=== PATIENT | female | born 1985 | race American Indian/Alaskan Native ===

== ENCOUNTER 2016-02-13 11:01 | Emergency (ER) | payer MEDICAID ==
[2016-02-13] MEDS ORDERED: ZOFRAN ODT PO ONE (14:08)
[2016-02-13] MEDS ORDERED: TYLENOL PO ONE (14:09)
--- NOTE | 2016-02-13 14:13 | Emergency Department Report ---
Vomiting/Diarrhea - [facility] Chief Complaint: Nausea/Vomiting/Diarrhea Stated Complaint: 8WKS/BODY PAIN/NAUSEA Time Seen by Provider: 02/13/16 14:07 Nausea/Vomiting Severity: Moderate Other History: 30-year-old female that is 8 weeks with a miscarriage in September 2014 comes in for nausea and vomiting with body aches. Patient reports that she had contacted the OB and told them a week ago that she's been nauseated and vomiting but they did not respond to her concerns. Patient does disclose that she is on Flagyl for bacterial vaginosis. She does complain of epigastric indigestion and not sure what to take. Lmp 12/16/15. ED Review of Systems ROS: Stated complaint: 8WKS/BODY PAIN/NAUSEA Other details as noted in HPI ED Past Medical Hx - Past Medical History Previous Medical History?: Yes Additional medical history: Miscarriage - Surgical History Past Surgical History?: Yes Additional Surgical History: D&C - Social History Smoking Status: Former Smoker Substance Use Type: Non Opiate Pain, Prescribed - Medications Home Medications: Home Medications Medication Instructions Recorded Confirmed Last Taken Type Ondansetron [Zofran Odt] 4 mg PO QID PRN #20 tab.rapdis 02/13/16 Unknown Rx Vit No.130/Iron/FA 02/13/16 02/12/16 History [ Tablet] Vomiting Diarrhea Exam - Exam General: Vital signs noted. No distress. Alert and acting appropriately. Neurologic: Alert and oriented, no deficits. Musculoskeletal: Unremarkable. ED Course Vital Signs 02/13/16 11:16 Temperature 98.1 F Pulse Rate 110 H Respiratory 20 Rate Blood Pressure 137/87 O2 Sat by Pulse 100 Oximetry - Reevaluation(s) Reevaluation #1: 02/13/16 15:31 She reports that she feels much better after having the Zofran and then normal saline. ED Medical Decision Making - Medical Decision Making Is been evaluated by provider in fast track. Discussed with Dr. Jaimes she agrees to given the patient 2 L of normal saline and Zofran and be sure to do a UA. Patient verbalizes understanding. We also gave her Tylenol 975 mg for pain from retching vomiting. Critical care attestation.: If time is entered above; I have spent that time in minutes in the direct care of this critically ill patient, excluding procedure time. ED Disposition Clinical Impression: Nausea & vomiting Qualifiers: Vomiting type: unspecified Vomiting Intractability: unspecified Qualified Code( s): R11.2 - Nausea with vomiting, unspecified Qualifiers: Weeks of gestation: 8 weeks Qualified Code(s): Z3A.08 - 8 weeks gestation of Disposition: DISCHARGED TO HOME OR SELFCARE Is pt being admited?: No Does the pt Need Aspirin: No Condition: Stable Instructions: Morning Sickness (ED) Additional Instructions: Discontinue the Flagyl. Follow-up with her FINANCIAL PROJECT MANAGER to see if they want to continue treatment. Take Zofran 30 minutes prior to eating on as-needed basis. Is very important for you to have care so please follow-up with your FINANCIAL PROJECT MANAGER as soon as possible. Prescriptions: Ondansetron [Zofran Odt] 4 mg PO QID PRN #20 tab.rapdis PRN Reason: Nausea Forms: Work/School Release Form(ED)
[2016-02-13] MEDS ORDERED: NACL 0.9% 1000 ML IV ONE ×2 (14:14→15:50)
[2016-02-13] MEDS ORDERED: ZOFRAN IV ONE (14:15)
[2016-02-13 14:57] LABS: Bilirubin,Urine NEG (Negative); Blood,Urine SM (Negative); Ketones,Urine 80 mg/dL (Negative); Leukocyte Esterase,Urine TR (Negative); Mucus,Urine FEW /HPF; Nitrite,Urine NEG (Negative); Protein,Urine <15 mg/dL mg/dL (Negative); Urobilinogen,Urine < 2.0 mg/dL (<2.0)
[2016-02-13 17:11] VITALS: BP 132/74
== END 2016-02-13 17:11 | disposition home or self-care (01) ==
LOC: ED 11:01
DX: O21.0 Mild hyperemesis gravidarum (principal); Z3A.08 8 weeks gestation of pregnancy; Z87.891 Personal history of nicotine dependence
CPT/HCPCS: 81001; 81025; 96361; 96374; 99283; J2405; J7030

== ENCOUNTER 2016-05-21 08:04 | Outpatient (CLI) | payer MEDICAID ==
--- NOTE | 2016-05-22 15:39 | Ultrasound Report ---
Bilateral breast ultrasound: The patient is 23 weeks and has recently noticed a soft increase in tissue in both axillary regions. The examining tie puller does not feel any focal mass or adenopathy. Bilateral axillary ultrasound demonstrates unremarkable soft tissue and muscular tissue. A single small lymph node may be identified in the left axilla. No other findings. Impressions: Normal bilateral axillary ultrasound. Recommendation: Clinical followup. BI-RADS CATEGORY: 1 = Negative ACR BI-RADS MAMMOGRAPHIC CODES: 0 = Needs additional imaging evaluation; 1 = Negative; 2 = Benign; 3 = Probably benign; 4 = Suspicious; 5 = Malignant; 6 = Known biopsy-proven malignancy COMMENT: 1. Dense breast tissue, i.e., adenosis, fibrocystic changes, etc., may obscure an underlying neoplasm. 2. Approximately 10% of cancers are not detected with mammography. 3. A negative mammography report should not delay biopsy if a clinically suspicious mass is present.
== END 2016-05-21 08:05 | disposition home or self-care (01) ==
LOC: US 08:04
PROVIDERS: ATTEND Nurse Practitioner Women's Health
DX: R22.2 Localized swelling, mass and lump, trunk (principal)

== ENCOUNTER 2016-09-13 16:29 | Inpatient (IN) | payer MEDICAID ==
[2016-09-13] MEDS ORDERED: MINERAL OIL PO PRN (16:50)
[2016-09-13] MEDS ORDERED: SUBLIMAZE IV PRN (16:50)
[2016-09-13] MEDS ORDERED: ZOFRAN IV PRN (16:50)
[2016-09-13] MEDS ORDERED: BRETHINE SUB-Q PRN (16:50)
[2016-09-13] MEDS ORDERED: XYLOCAINE 2% INFILTRATI ONE (16:50)
[2016-09-13] MEDS ORDERED: ePHEDrine SULFATE IV PRN ×2 (16:50→23:50)
[2016-09-13] MEDS ORDERED: PITOCin/NS 20 UNIT/1000ML DRIP 20 UNITS/1,000 ML BAG IV SCH (17:00)
--- NOTE | 2016-09-13 17:03 | History and Physical Report ---
History of Present Illness Date of examination: 09/13/16 (pt presents with SROM) History of present illness: EDC Confirmation: 09/21/2016 Gestational Age: 13 6/7 weeks Past History : 4 Term Births: 0 Premature Births: 1 Living Children: 1 Para: 1 Spont. 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 of genital herpes: no Partner hx. of genital herpes: no Rash, Viral, or Febrile illness since last LMP? no Varicella/Chicken Pox Status: Previous Disease TB Risk: no Genetic History Congenital Heart Defect: Mom: no Dad: no Rika Disease: Mom: no Dad: no Thalassemia Mom: no Dad: no Neural Tube Defect Mom: no Dad: no Down's Syndrome Mom: no Dad: no Sanjay-Sachs Mom: no Dad: no Sickle Cell Disease/Trait Mom: yes Dad: no Hemophilia Mom: no Dad: no Muscular Dystrophy Mom: no Dad: no Cystic Fibrosis Mom: no Dad: no Christi Chorea Mom: no Dad: no Mental Retardation Mom: no Dad: no Fragile X Mom: no Dad: no Other Genetic/Chromosomal Disorder Mom: no Dad: no Child w/other defect Mom: no Dad: no Enviromental Exposures Xray Exposure: no Medication, drug, or alcohol use since LMP: no Chemical/Other Exposure: no Exposure to Cat Liter: no Hx of Parvovirus (Fifth Disease): no Occupational Exposure to Children: none Active Medications (reviewed today): TUMS () PNV () Current Allergies (reviewed today): No known allergies Laboratory Results Routine Urinalysis Leukocytes: negative Nitrite: negative Urobilinogen: negative Protein: negative Blood: 1+ Ketone: negative Bilirubin: negative Glucose: negative Urine HCG: positive Review of Systems General Denies fever, chills, sweats, anorexia, fatigue, weakness, malaise, weight loss and sleep disorder. Denies nausea, vomiting, headache, swelling of legs, abdominal pain, vaginal discharge, vaginal bleeding and contractions. Denies vaginal discharge, incontinence, dysuria, hematuria, urinary frequency, amenorrhea, menorrhagia, abnormal vaginal bleeding, pelvic pain, genital sores, decreased libido, painful periods, painful sex, urinary urgency, hot flashes, vaginal dryness, vaginal itching and vaginal odor. CV Denies chest pains, palpitations, syncope, dyspnea on exertion, orthopnea, PND and peripheral edema. Resp Denies cough, dyspnea at rest, excessive sputum, hemoptysis, wheezing and pleurisy. GI Denies nausea, vomiting, diarrhea, constipation, change in bowel habits, abdominal pain, melena, hematochezia, jaundice, gas/bloating, indigestion/ heartburn, dysphagia and odynophagia. Endo Denies cold intolerance, heat intolerance, polydipsia, polyphagia, polyuria and unusual weight change. Breast Denies left breast lump, right breast lump, nipple discharge, bloody discharge from nipple, breast pain, abnormal mammogram and breast enlargement. MS Denies back pain, joint pain, joint swelling, muscle cramps, muscle weakness, stiffness, arthritis, sciatica, restless legs, leg pain at night and leg pain with exertion. Derm Denies rash, itching, dryness and suspicious lesions. Neuro Denies paralysis, paresthesias, headache, seizures, tremors, vertigo, transient blindness, frequent falls, frequent headaches and difficulty walking. Psych Denies depression, anxiety, irritability and mood swings. Eyes Denies blurring, diplopia, irritation, discharge, vision loss, eye pain and photophobia. ENT Denies earache, ear discharge, tinnitus, decreased hearing, nasal congestion, nosebleeds, sore throat and hoarseness. Allergy Denies urticaria, allergic rash, hay fever and recurrent infections. Heme Denies abnormal bruising, bleeding and enlarged lymph nodes. 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 Vulva/Vagina: No lesions, normal BUS, normal rugae Cervix: No lesions; no cervical motion tenderness Uterus: normal size and position, midline, mobile Adnexae: no masses or tenderness Rectovaginal: no masses or tenderness Past History - Obstetrical History Expected Date of Delivery: 09/21/16 Actual Gestation: 38 Week(s) 6 Day(s) : 4 Para: 1 Hx # Term Pregnancies: 0 Number of Pregnancies: 1 (34 weeks) Spontaneous Abortions: 2 Number of Living Children: 1 Medications and Allergies Allergies Allergy/AdvReac Type Severity Reaction Status Date / Time egg Allergy Rash Unverified 05/21/16 08:05 Home Medications Medication Instructions Recorded Confirmed Last Taken Type Ondansetron [Zofran Odt] 4 mg PO QID PRN #20 tab.rapdis 02/13/16 Unknown Rx Vit No.130/Iron/FA 02/13/16 02/12/16 History [ Tablet] Active Meds: Active Medications Ephedrine Sulfate (Ephedrine Sulfate) 10 mg IV Q2M PRN PRN Reason: Hypotension Stop: 09/13/16 16:55 Fentanyl (Sublimaze) 100 mcg IV Q2H PRN PRN Reason: Labor Pain Lactated Ringer's (Lactated Ringers) 1,000 mls @ 125 mls/hr IV DIRECT DILMA Oxytocin/Sodium Chloride (Pitocin/Ns 20 Unit/1000ml Drip) 20 units in 1,000 mls @ 125 mls/hr IV DIRECT DILMA Oxytocin/Sodium Chloride (Pitocin/Ns 30 Unit/500ml) 30 units in 500 mls @ 4 mls /hr IV Q30MIN DILMA PRN Reason: Protocol Lidocaine (Xylocaine 2%) 20 ml INFILTRATI ONCE ONE Stop: 09/13/16 16:51 Mineral Oil (Mineral Oil) 30 ml PO QHS PRN PRN Reason: Constipation Ondansetron HCl (Zofran) 4 mg IV Q8H PRN PRN Reason: Nausea And Vomiting Terbutaline Sulfate (Brethine) 0.25 mg SUB-Q ONCE PRN PRN Reason: Hyperstimulation/Hypertonicity Stop: 09/13/16 16:51 - Vital Signs Vital signs: Vital Signs Pulse Pulse Ox 82 98 09/13/16 16:34 09/13/16 16:34 Temp Pulse Resp BP Pulse Ox 85 117/60 97 09/13/16 16:48 09/13/16 16:43 09/13/16 16:48 - Physical Exam Breasts: Positive: deferred Cardiovascular: Regular rate, Normal S1, Normal S2 Lungs: Positive: Normal air movement Abdomen: Positive: normal appearance, soft, normal bowel sounds. Negative: distention, tenderness Genitourinary (Female): Positive: normal external genitalia Vulva: both: normal Vagina: Positive: normal moisture. Negative: discharge Cervix: Negative: lesion, discharge Uterus: Positive: normal size, normal contour Adnexa: both: normal Anus/Rectum: Positive: normal perianal skin, heme negative. Negative: rectal mass, hemorrhoids Extremities: Positive: normal Deep Tendon Reflex Grade: Normal +2 - Obstetrical FHR: category 1 Uterine Contraction Monitor Mode: External Cervical Dilatation: 1.5 (SROM clear fluid @ 1230) Cervical Effacement Percentage: 70 station: -2 Uterine Contraction Pattern: Irregular Uterine Tone Measurement Phase: Resting Uterine Contraction Intensity: Mild Results All other labs normal. HBsAg Screen Negative Negative *1 Rubella Antibodies, IgG 21.60 index Immune >0.99 *2 Non-immune <0.90 Equivocal 0.90 - 0.99 Immune >0.99 ABO Grouping A *3 Rh Factor Positive *4 Please note: Prior records for this patient's ABO / Rh type are not available for additional verification. Antibody Screen See Final Results Negative *5 Tests: (2) Ab Scr+Antibody ID ([id number]) ! Antibody Screen [A] Positive Negative *6 ! Antibody Id. #1 MHIGH *7 The patient's serum reacted with all reagent red cells in the antiglobulin phase of testing. No specific antibody pattern was evident. A direct antiglobulin test was performed and is negative. We suspect either the presence of multiple red cell antibodies or a single red cell antibody directed against a high frequency antigen. We suggest that additional specimens be referred to the facility at which the patient will receive medical care to ensure the availability of compatible blood. If transfusions become necessary, difficulty in crossmatching should be anticipated. ! Brittani Titer #1 <No Reported Value> *8 ! Antibody Id. #2 <No Reported Value> *9 ! Brittani Titer #2 <No Reported Value> *10 Tests: (3) Profile I ([id number]) RPR Non Reactive Non Reactive *11 WBC 4.1 x10E3/uL 3.4-10.8 *12 RBC [L] 3.52 x10E6/uL 3.77-5.28 *13 Hemoglobin 11.4 g/dL 11.1-15.9 *14 Hematocrit 34.5 % 34.0-46.6 *15 MCV [H] 98 fL 79-97 *16 MCH 32.4 pg 26.6-33.0 *17 MCHC 33.0 g/dL 31.5-35.7 *18 RDW 13.4 % 12.3-15.4 *19 Platelets 207 x10E3/uL 150-379 *20 Neutrophils 70 % *21 Lymphs 21 % *22 Monocytes 6 % *23 Eos 2 % *24 Basos 1 % *25 ! Immature Cells <No Reported Value> *26 Neutrophils (Absolute) 2.9 x10E3/uL 1.4-7.0 *27 Lymphs (Absolute) 0.9 x10E3/uL 0.7-3.1 *28 Monocytes(Absolute) 0.3 x10E3/uL 0.1-0.9 *29 Eos (Absolute) 0.1 x10E3/uL 0.0-0.4 *30 Baso (Absolute) 0.0 x10E3/uL 0.0-0.2 *31 ! Immature Granulocytes 0 % *32 ! Immature Grans (Abs) 0.0 x10E3/uL 0.0-0.1 *33 ! NRBC <No Reported Value> *34 Hematology Comments: <No Reported Value> *35 Tests: (4) AFP Tetra ([id number]) ! Results Report *36 ! Test Results: *Screen Negative* *37 ! ! PDF . *60 T Tests: (6) HB Solu + Rflx Frac ([id number]) Hemoglobin (Hgb) Solubility [A] Positive Negative *63 Tests: (7) Hemoglobin Frac.w/o Solubility ([id number]) ! Hgb F 0.0 % 0.0-2.0 *64 ! Hgb A [L] 55.3 % 94.0-98.0 *65 ! Hgb S [H] 40.9 % 0.0 *66 ! Hgb C 0.0 % 0.0 *67 ! Hgb A2 [H] 3.8 % 0.7-3.1 *68 ! Hgb Variant <No Reported Value> *69 ! Interpretation HGAS1 *70 Hemoglobin pattern and concentration are consistent with sickle cell trait (heterozygous). Suggest clinical and hematologic correlation. Sickle Trait Interpretation Ranges Hgb A 50.0 - 70.0% Hgb S 30.0 - 45.0% Hgb A2 3.0 - 5.0%* *Hgb A2 values are seen to be increased over normal levels. This increase is typically due to interference from co-eluting Hgb S-subunits with the HPLC method and therefore the Hgb A2 interpretation ranges have been adjusted. Tests: (8) Panel 106733 ([id number]) HIV Screen 4th Generation wRfx Non Reactive Non Reactive *71 Tests: (9) HCV Ab w/Rflx to Verification ([id number]) ! HCV Ab 0.2 s/co ratio 0.0-0.9 *72 Tests: (10) Comment: ([id number]) ! Comment: SPRCS *73 Non reactive HCV antibody screen is consistent with no HCV infection, unless recent infection is suspected or other evidence exists to indicate HCV infection. Assessment and Plan 31yo @ 39 weeks with SROM clear fluid GBS negative Orders in EMR
[2016-09-13 17:58] LABS: Hematocrit 36.8 % (30.3-42.9); Hemoglobin 12.5 gm/dl (10.1-14.3); Mean Corpuscular HGB Conc 34 % (30-34); Mean Corpuscular Hemoglobin 34 pg (28-32); Mean Corpuscular Volume 100 fl (79-97); Platelet Count 196 K/mm3 (140-440); Red Cell Distribution Width 13.4 % (13.2-15.2); White Blood Count 6.7 K/mm3 (4.5-11.0)
[2016-09-13] MEDS: LACTATED RINGERS 1,000 ML IV SCH ×3 (18:13→23:43)
[2016-09-13] MEDS: PITOCin/NS 30 UNIT/500ML 30 UNITS/500 ML BAG IV SCH ×2 (18:19→18:59)
--- NOTE | 2016-09-13 19:01 | Progress Note ---
Assessment and Plan Baby very active ISE/IUPC placed SVE 2,70,-2 Clear fluid continues to leak out. Pit started @ 4mu. Re-eval as needed. Subjective - Subjective Date of service: 09/13/16 (no c/o voiced) Interval history: EDC Confirmation: 09/21/2016 Gestational Age: 13 6/7 weeks Past History : 4 Term Births: 0 Premature Births: 1 Living Children: 1 Para: 1 Spont. 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 of genital herpes: no Partner hx. of genital herpes: no Rash, Viral, or Febrile illness since last LMP? no Varicella/Chicken Pox Status: Previous Disease TB Risk: no Genetic History Congenital Heart Defect: Mom: no Dad: no Rika Disease: Mom: no Dad: no Thalassemia Mom: no Dad: no Neural Tube Defect Mom: no Dad: no Down's Syndrome Mom: no Dad: no Sanjay-Sachs Mom: no Dad: no Sickle Cell Disease/Trait Mom: yes Dad: no Hemophilia Mom: no Dad: no Muscular Dystrophy Mom: no Dad: no Cystic Fibrosis Mom: no Dad: no Christi Chorea Mom: no Dad: no Mental Retardation Mom: no Dad: no Fragile X Mom: no Dad: no Other Genetic/Chromosomal Disorder Mom: no Dad: no Child w/other defect Mom: no Dad: no Enviromental Exposures Xray Exposure: no Medication, drug, or alcohol use since LMP: no Chemical/Other Exposure: no Exposure to Cat Liter: no Hx of Parvovirus (Fifth Disease): no Occupational Exposure to Children: none Active Medications (reviewed today): TUMS () PNV () Current Allergies (reviewed today): No known allergies Laboratory Results Routine Urinalysis Leukocytes: negative Nitrite: negative Urobilinogen: negative Protein: negative Blood: 1+ Ketone: negative Bilirubin: negative Glucose: negative Urine HCG: positive Review of Systems General Denies fever, chills, sweats, anorexia, fatigue, weakness, malaise, weight loss and sleep disorder. Denies nausea, vomiting, headache, swelling of legs, abdominal pain, vaginal discharge, vaginal bleeding and contractions. Denies vaginal discharge, incontinence, dysuria, hematuria, urinary frequency, amenorrhea, menorrhagia, abnormal vaginal bleeding, pelvic pain, genital sores, decreased libido, painful periods, painful sex, urinary urgency, hot flashes, vaginal dryness, vaginal itching and vaginal odor. CV Denies chest pains, palpitations, syncope, dyspnea on exertion, orthopnea, PND and peripheral edema. Resp Denies cough, dyspnea at rest, excessive sputum, hemoptysis, wheezing and pleurisy. GI Denies nausea, vomiting, diarrhea, constipation, change in bowel habits, abdominal pain, melena, hematochezia, jaundice, gas/bloating, indigestion/ heartburn, dysphagia and odynophagia. Endo Denies cold intolerance, heat intolerance, polydipsia, polyphagia, polyuria and unusual weight change. Breast Denies left breast lump, right breast lump, nipple discharge, bloody discharge from nipple, breast pain, abnormal mammogram and breast enlargement. MS Denies back pain, joint pain, joint swelling, muscle cramps, muscle weakness, stiffness, arthritis, sciatica, restless legs, leg pain at night and leg pain with exertion. Derm Denies rash, itching, dryness and suspicious lesions. Neuro Denies paralysis, paresthesias, headache, seizures, tremors, vertigo, transient blindness, frequent falls, frequent headaches and difficulty walking. Psych Denies depression, anxiety, irritability and mood swings. Eyes Denies blurring, diplopia, irritation, discharge, vision loss, eye pain and photophobia. ENT Denies earache, ear discharge, tinnitus, decreased hearing, nasal congestion, nosebleeds, sore throat and hoarseness. Allergy Denies urticaria, allergic rash, hay fever and recurrent infections. Heme Denies abnormal bruising, bleeding and enlarged lymph nodes. 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/Vagina: No lesions, normal BUS, normal rugae Cervix: No lesions; no cervical motion tenderness Uterus: normal size and position, midline, mobile Adnexae: no masses or tenderness Rectovaginal: no masses or tenderness Patient reports: movement normal Objective - Vital Signs Vital Signs: Vital Signs - 12hr 09/13/16 09/13/16 09/13/16 16:34 16:41 16:43 Temperature Pulse Rate 82 97 H 86 Respiratory Rate Blood Pressure 117/60 O2 Sat by Pulse 98 67 L 99 Oximetry 09/13/16 09/13/16 09/13/16 16:48 16:53 16:58 Temperature Pulse Rate 85 81 91 H Respiratory Rate Blood Pressure O2 Sat by Pulse 97 97 98 Oximetry 09/13/16 09/13/16 09/13/16 18:24 18:25 18:27 Temperature 97.2 F L Pulse Rate 90 80 80 Respiratory 16 Rate Blood Pressure 112/62 112/62 O2 Sat by Pulse 97 96 Oximetry 09/13/16 09/13/16 09/13/16 18:29 18:34 18:39 Temperature Pulse Rate 86 87 83 Respiratory Rate Blood Pressure O2 Sat by Pulse 97 96 98 Oximetry 09/13/16 09/13/16 09/13/16 18:44 18:49 18:54 Temperature Pulse Rate 84 74 80 Respiratory Rate Blood Pressure O2 Sat by Pulse 97 98 96 Oximetry - Exam Breasts: deferred Cardiovascular: Regular rate Lungs: Normal air movement Abdomen: Present: normal appearance, soft. Absent: distention, tenderness Uterus: Present: normal FHR: auscultation normal, category 1 Uterine Contraction Monitor Mode: Internal Cervical Dilatation: 2 (ISE/IUPC placed) Cervical Effacement Percentage: 70 station: -2 Uterine Contraction Pattern: Irregular Uterine Contraction Intensity: Moderate Extremities: normal Deep Tendon Reflex Grade: Normal +2 - Labs Labs: Abnormal Labs 09/13/16 17:25 MCV 100 H MCH 34 H Laboratory Results - last 24 hr 09/13/16 09/13/16 17:25 17:25 WBC 6.7 RBC 3.70 Hgb 12.5 Hct 36.8 MCV 100 H MCH 34 H MCHC 34 RDW 13.4 Plt Count 196 Blood Type A POSITIVE Antibody Screen TNR ELISEO Antibody Screen Negative
--- NOTE | 2016-09-13 21:37 | Event Note ---
Date: 09/13/16 (pt tolerating labor well) SVE 4,100,0 Ctx Q 2-3, 50, mod Pit @ 20mu Re-eval as needed
[2016-09-13] MEDS ORDERED: fentaNYL-BUPIV 2 MCG/ML-0.125% 200 MCG/100 ML BAG EPIDURAL SCH (23:45)
[2016-09-13] MEDS ORDERED: NARCAN 2 MG/2 ML IV PRN (23:50)
--- NOTE | 2016-09-13 23:50 | Anesthesia Consultation ---
Anesthesia Consult and Med Hx Date of service: 09/13/16 - Airway Anesthetic Teeth Evaluation: Good ROM Head & Neck: Adequate Mental/Hyoid Distance: Adequate Mallampati Class: Class II Intubation Access Assessment: Probably Good - Pulmonary Exam CTA: Yes - Cardiac Exam Cardiac Exam: RRR - Pre-Operative Health Status ASA Pre-Surgery Classification: ASA2 Proposed Anesthetic Plan: Epidural, Spinal - Pulmonary Hx Asthma: No COPD: No Hx Pneumonia: No - Cardiovascular System Hx Hypertension: No - Central Nervous System Hx Seizures: No Hx Psychiatric Problems: No - Endocrine Hx Renal Disease: No Hx End Stage Renal Disease: No Hx Hypothyroidism: No Hx Hyperthyroidism: No - Hematic Hx Anemia: No Hx Sickle Cell Disease: No - Other Systems Hx Alcohol Use: No Hx Obesity: Yes - Additional Comments Anesthesia Medical History Comments: +IUP
--- NOTE | 2016-09-14 00:27 | Progress Note ---
Assessment and Plan Anticipate vaginal delivery Subjective - Subjective Date of service: 09/14/16 (comfortable with epidural) Interval history: EDC Confirmation: 09/21/2016 Gestational Age: 13 6/7 weeks Past History : 4 Term Births: 0 Premature Births: 1 Living Children: 1 Para: 1 Spont. 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 of genital herpes: no Partner hx. of genital herpes: no Rash, Viral, or Febrile illness since last LMP? no Varicella/Chicken Pox Status: Previous Disease TB Risk: no Genetic History Congenital Heart Defect: Mom: no Dad: no Rika Disease: Mom: no Dad: no Thalassemia Mom: no Dad: no Neural Tube Defect Mom: no Dad: no Down's Syndrome Mom: no Dad: no Sanjay-Sachs Mom: no Dad: no Sickle Cell Disease/Trait Mom: yes Dad: no Hemophilia Mom: no Dad: no Muscular Dystrophy Mom: no Dad: no Cystic Fibrosis Mom: no Dad: no [place] Chorea Mom: no Dad: no Mental Retardation Mom: no Dad: no Fragile X Mom: no Dad: no Other Genetic/Chromosomal Disorder Mom: no Dad: no Child w/other defect Mom: no Dad: no Enviromental Exposures Xray Exposure: no Medication, drug, or alcohol use since LMP: no Chemical/Other Exposure: no Exposure to Cat Liter: no Hx of Parvovirus (Fifth Disease): no Occupational Exposure to Children: none Active Medications (reviewed today): TUMS () PNV () Current Allergies (reviewed today): No known allergies Laboratory Results Routine Urinalysis Leukocytes: negative Nitrite: negative Urobilinogen: negative Protein: negative Blood: 1+ Ketone: negative Bilirubin: negative Glucose: negative Urine HCG: positive Review of Systems General Denies fever, chills, sweats, anorexia, fatigue, weakness, malaise, weight loss and sleep disorder. Denies nausea, vomiting, headache, swelling of legs, abdominal pain, vaginal discharge, vaginal bleeding and contractions. Denies vaginal discharge, incontinence, dysuria, hematuria, urinary frequency, amenorrhea, menorrhagia, abnormal vaginal bleeding, pelvic pain, genital sores, decreased libido, painful periods, painful sex, urinary urgency, hot flashes, vaginal dryness, vaginal itching and vaginal odor. CV Denies chest pains, palpitations, syncope, dyspnea on exertion, orthopnea, PND and peripheral edema. Resp Denies cough, dyspnea at rest, excessive sputum, hemoptysis, wheezing and pleurisy. GI Denies nausea, vomiting, diarrhea, constipation, change in bowel habits, abdominal pain, melena, hematochezia, jaundice, gas/bloating, indigestion/ heartburn, dysphagia and odynophagia. Endo Denies cold intolerance, heat intolerance, polydipsia, polyphagia, polyuria and unusual weight change. Breast Denies left breast lump, right breast lump, nipple discharge, bloody discharge from nipple, breast pain, abnormal mammogram and breast enlargement. MS Denies back pain, joint pain, joint swelling, muscle cramps, muscle weakness, stiffness, arthritis, sciatica, restless legs, leg pain at night and leg pain with exertion. Derm Denies rash, itching, dryness and suspicious lesions. Neuro Denies paralysis, paresthesias, headache, seizures, tremors, vertigo, transient blindness, frequent falls, frequent headaches and difficulty walking. Psych Denies depression, anxiety, irritability and mood swings. Eyes Denies blurring, diplopia, irritation, discharge, vision loss, eye pain and photophobia. ENT Denies earache, ear discharge, tinnitus, decreased hearing, nasal congestion, nosebleeds, sore throat and hoarseness. Allergy Denies urticaria, allergic rash, hay fever and recurrent infections. Heme Denies abnormal bruising, bleeding and enlarged lymph nodes. 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 Vulva/Vagina: No lesions, normal BUS, normal rugae Cervix: No lesions; no cervical motion tenderness Uterus: normal size and position, midline, mobile Adnexae: no masses or tenderness Rectovaginal: no masses or tenderness Patient reports: movement normal Objective - Vital Signs Vital Signs: Vital Signs - 12hr 09/13/16 09/13/16 09/13/16 16:34 16:41 16:43 Temperature Pulse Rate 82 97 H 86 Respiratory Rate Blood Pressure 117/60 O2 Sat by Pulse 98 67 L 99 Oximetry 09/13/16 09/13/16 09/13/16 16:48 16:53 16:58 Temperature Pulse Rate 85 81 91 H Respiratory Rate Blood Pressure O2 Sat by Pulse 97 97 98 Oximetry 09/13/16 09/13/16 09/13/16 18:24 18:25 18:27 Temperature 97.2 F L Pulse Rate 90 80 80 Respiratory 16 Rate Blood Pressure 112/62 112/62 O2 Sat by Pulse 97 96 Oximetry 09/13/16 09/13/16 09/13/16 18:29 18:34 18:39 Temperature Pulse Rate 86 87 83 Respiratory Rate Blood Pressure O2 Sat by Pulse 97 96 98 Oximetry 09/13/16 09/13/16 09/13/16 18:44 18:49 18:54 Temperature Pulse Rate 84 74 80 Respiratory Rate Blood Pressure O2 Sat by Pulse 97 98 96 Oximetry 09/13/16 09/13/16 09/13/16 18:59 19:04 19:09 Temperature Pulse Rate 78 83 79 Respiratory Rate Blood Pressure O2 Sat by Pulse 96 97 97 Oximetry 09/13/16 09/13/16 09/13/16 19:14 19:19 19:24 Temperature Pulse Rate 81 80 81 Respiratory Rate Blood Pressure O2 Sat by Pulse 97 97 97 Oximetry 09/13/16 09/13/16 09/13/16 19:29 19:34 19:39 Temperature Pulse Rate 79 77 78 Respiratory Rate Blood Pressure O2 Sat by Pulse 99 98 98 Oximetry 09/13/16 09/13/16 09/13/16 19:40 19:44 19:49 Temperature 97.0 F L Pulse Rate 76 78 77 Respiratory 18 Rate Blood Pressure 115/57 O2 Sat by Pulse 96 97 Oximetry 09/13/16 09/13/16 09/13/16 19:54 19:59 20:00 Temperature Pulse Rate 76 83 81 Respiratory Rate Blood Pressure O2 Sat by Pulse 97 95 94 Oximetry 09/13/16 09/13/16 09/13/16 20:04 20:05 20:09 Temperature Pulse Rate 83 80 71 Respiratory Rate Blood Pressure O2 Sat by Pulse 98 91 97 Oximetry 09/13/16 09/13/16 09/13/16 20:11 20:14 20:19 Temperature Pulse Rate 82 78 86 Respiratory Rate Blood Pressure O2 Sat by Pulse 92 98 96 Oximetry 09/13/16 09/13/16 09/13/16 20:24 20:29 20:33 Temperature Pulse Rate 80 74 81 Respiratory Rate Blood Pressure O2 Sat by Pulse 96 99 94 Oximetry 09/13/16 09/13/16 09/13/16 20:34 20:39 20:42 Temperature Pulse Rate 80 77 77 Respiratory Rate Blood Pressure O2 Sat by Pulse 100 97 93 Oximetry 09/13/16 09/13/16 09/13/16 20:44 20:49 20:50 Temperature Pulse Rate 79 82 88 Respiratory Rate Blood Pressure O2 Sat by Pulse 97 98 92 Oximetry 09/13/16 09/13/16 09/13/16 20:54 20:59 21:04 Temperature Pulse Rate 79 88 82 Respiratory Rate Blood Pressure O2 Sat by Pulse 99 98 98 Oximetry 09/13/16 09/13/16 09/13/16 21:09 21:14 21:19 Temperature Pulse Rate 81 87 84 Respiratory Rate Blood Pressure O2 Sat by Pulse 100 100 100 Oximetry 09/13/16 09/13/16 09/13/16 21:24 21:29 21:34 Temperature Pulse Rate 84 83 84 Respiratory Rate Blood Pressure O2 Sat by Pulse 100 100 99 Oximetry 09/13/16 09/13/16 09/13/16 21:39 21:44 21:49 Temperature Pulse Rate 87 86 82 Respiratory Rate Blood Pressure O2 Sat by Pulse 99 100 100 Oximetry 09/13/16 09/13/16 09/13/16 21:54 21:59 22:04 Temperature Pulse Rate 93 H 92 H 90 Respiratory Rate Blood Pressure O2 Sat by Pulse 99 99 100 Oximetry 09/13/16 09/13/16 09/13/16 22:09 22:14 22:19 Temperature Pulse Rate 85 90 83 Respiratory Rate Blood Pressure O2 Sat by Pulse 99 99 97 Oximetry 09/13/16 09/13/16 09/13/16 22:20 22:24 22:26 Temperature Pulse Rate 88 89 83 Respiratory Rate Blood Pressure O2 Sat by Pulse 91 98 93 Oximetry 09/13/16 09/13/16 09/13/16 22:29 22:34 22:38 Temperature Pulse Rate 86 92 H 90 Respiratory Rate Blood Pressure O2 Sat by Pulse 99 99 88 Oximetry 09/13/16 09/13/16 09/13/16 22:39 22:44 22:49 Temperature Pulse Rate 95 H 93 H 92 H Respiratory Rate Blood Pressure O2 Sat by Pulse 91 99 93 Oximetry 09/13/16 09/13/16 09/13/16 22:54 23:00 23:05 Temperature Pulse Rate 95 H 102 H 98 H Respiratory Rate Blood Pressure O2 Sat by Pulse 100 98 99 Oximetry 09/13/16 09/13/16 09/13/16 23:10 23:15 23:20 Temperature Pulse Rate 91 H 95 H 97 H Respiratory Rate Blood Pressure O2 Sat by Pulse 100 100 97 Oximetry 09/13/16 09/13/16 09/13/16 23:21 23:25 23:27 Temperature 98.1 F Pulse Rate 96 H 98 H 101 H Respiratory 20 Rate Blood Pressure 118/58 O2 Sat by Pulse 90 100 Oximetry 09/13/16 09/13/16 09/13/16 23:28 23:30 23:33 Temperature Pulse Rate 90 96 H 94 H Respiratory Rate Blood Pressure 118/58 O2 Sat by Pulse 100 94 Oximetry 09/13/16 09/13/16 09/13/16 23:35 23:37 23:39 Temperature Pulse Rate 95 H 98 H 94 H Respiratory Rate Blood Pressure 116/58 111/59 113/60 O2 Sat by Pulse 100 Oximetry 09/13/16 09/13/16 09/13/16 23:40 23:41 23:43 Temperature Pulse Rate 94 H 92 H 97 H Respiratory Rate Blood Pressure 105/55 109/58 O2 Sat by Pulse 97 Oximetry 09/13/16 09/13/16 09/13/16 23:45 23:47 23:49 Temperature Pulse Rate 92 H 96 H 93 H Respiratory Rate Blood Pressure 102/56 105/59 107/51 O2 Sat by Pulse 100 Oximetry 09/13/16 09/13/16 09/13/16 23:50 23:51 23:53 Temperature Pulse Rate 93 H 96 H 92 H Respiratory Rate Blood Pressure 109/55 108/58 O2 Sat by Pulse 100 Oximetry 09/13/16 09/14/16 09/14/16 23:55 00:00 00:05 Temperature Pulse Rate 94 H 90 88 Respiratory Rate Blood Pressure 108/55 O2 Sat by Pulse 100 100 100 Oximetry 09/14/16 09/14/16 09/14/16 00:11 00:15 00:20 Temperature Pulse Rate 90 93 H 94 H Respiratory Rate Blood Pressure 112/69 O2 Sat by Pulse 99 100 100 Oximetry - Exam Breasts: deferred Cardiovascular: Regular rate Lungs: Normal air movement Abdomen: Present: normal appearance, soft. Absent: distention, tenderness Uterus: Present: normal FHR: auscultation normal Uterine Contraction Monitor Mode: Internal Cervical Dilatation: 9.5 Cervical Effacement Percentage: 100 station: 0 Uterine Contraction Frequency (min): q2 Uterine Contraction Duration: 50 Uterine Contraction Pattern: Regular Uterine Tone Measurement Phase: Resting Uterine Contraction Intensity: Moderate Extremities: normal Deep Tendon Reflex Grade: Normal +2 - Labs Labs: Abnormal Labs 09/13/16 17:25 MCV 100 H MCH 34 H Laboratory Results - last 24 hr 09/13/16 09/13/16 17:25 17:25 WBC 6.7 RBC 3.70 Hgb 12.5 Hct 36.8 MCV 100 H MCH 34 H MCHC 34 RDW 13.4 Plt Count 196 Blood Type A POSITIVE Antibody Screen TNR ELISEO Antibody Screen Negative
[2016-09-14] MEDS ORDERED: METHERGINE IM ONE ×2 (01:16→01:52)
[2016-09-14] MEDS ORDERED: CYTOTEC ONE (01:19)
[2016-09-14] MEDS ORDERED: CYTOTEC PR ONE (01:52)
[2016-09-14] MEDS ORDERED: MILK OF MAGNESIA PO PRN (01:53)
[2016-09-14] MEDS ORDERED: LANSINOH TP PRN (01:53)
[2016-09-14] MEDS ORDERED: PHENERGAN PO PRN (01:53)
[2016-09-14] MEDS ORDERED: NORCO 5/325 PO PRN (01:53)
[2016-09-14] MEDS ORDERED: BENADRYL PO PRN (01:53)
[2016-09-14] MEDS ORDERED: TUCKS PAD TP PRN (01:53)
[2016-09-14] MEDS ORDERED: DULCOLAX PR PRN (01:53)
[2016-09-14] MEDS ORDERED: TYLENOL PO PRN (01:53)
[2016-09-14] MEDS ORDERED: PERCOCET 5/325 PO PRN (01:53)
[2016-09-14] MEDS ORDERED: SODIUM CHLORIDE FLUSH SYRINGE 10 ML IV PRN (02:00)
[2016-09-14] MEDS ORDERED: MOTRIN PO SCH (02:00)
--- NOTE | 2016-09-14 02:10 | Procedure Note ---
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 Placenta and membrane delivered complete and intact, 3 vessel cord. Pit IVFs Uterine atony Bleeding continues despite pit and massage Methergine IM given. More massage bleeding continues Cytotec 800mcgPR placed. Episiotomy repaired with 2-0 vicryl 8/9, EBL 500, wgt 7-15 Baby skin to skin with dad during repair. Mom and baby remain LDR breast feeding. [facility] Will monitor. - A at 1 minute: 8 at 5 minutes: 9 Gender: Female (wgt 7-15)
[2016-09-14] MEDS: MOTRIN PO SCH ×3 (02:40→17:30)
[2016-09-14] MEDS: PRENATAL VITAMIN PO SCH (08:55)
[2016-09-14] MEDS: COLACE PO SCH (08:55)
[2016-09-14 11:47] LABS: Hematocrit 34.5 % (30.3-42.9); Hemoglobin 11.8 gm/dl (10.1-14.3)
[2016-09-15] MEDS: COLACE PO SCH ×2 (00:22→09:00)
[2016-09-15] MEDS: MOTRIN PO SCH (01:07)
[2016-09-15] MEDS ORDERED: M-M-R II VACCINE SUB-Q ONE (01:53)
[2016-09-15] MEDS ORDERED: BOOSTRIX IM ONE (06:00)
[2016-09-15] MEDS ORDERED: DEPO-PROVERA (CONTRACEPTION) IM ONE (08:38)
[2016-09-15] MEDS: PRENATAL VITAMIN PO SCH (09:00)
--- NOTE | 2016-09-15 10:30 | Discharge Summary ---
Providers - Providers Date of Admission: 09/13/16 16:30 Date of discharge: 09/15/16 Attending physician: ARSENIO HERNANDEZ Primary care physician: ARSENIO HERNANDEZ Hospitalization Condition: Good Procedures: PPD#1, s/p Hospital course: Normal Disposition: DC-01 TO HOME OR SELFCARE - Discharge Diagnoses (1) Single live Status: Acute (2) Spontaneous vaginal delivery Status: Acute Core Measure Documentation - Palliative Care Palliative Care/ Comfort Measures: Not Applicable - Core Measures Any of the following diagnoses?: none Exam - Constitutional Vitals: Temp Pulse Resp BP Pulse Ox 98.1 F 60 18 112/74 100 09/15/16 08:20 09/15/16 08:20 09/15/16 08:20 09/15/16 08:20 09/14/16 00:46 General appearance: Present: no acute distress (desires d/c home, has some nipple tenderness with breast feeding, breast are soft, no s/s infection, no engorgement) - Respiratory Respiratory effort: normal - Extremities Extremities: no ischemia - Abdominal Female genitourinary: Present: deferred (Episiotimy care discussed) - Integumentary Integumentary: Present: clear, warm, dry - Psychiatric Psychiatric: appropriate mood/affect Plan Activity: other (no sex) Weight Bearing Status: Weight Bear as Tolerated Diet: regular Wound: open to air, keep clean and dry Follow up with: ARSENIO HERNANDEZ MD [Primary Care Provider] - 6 Weeks Prescriptions: Docusate Sodium [Colace] 100 mg PO BID PRN #60 capsule PRN Reason: Constipation Ibuprofen [Motrin 800 MG tab] 800 mg PO TID PRN #30 tablet PRN Reason: Pain
[2016-09-15 14:16] VITALS: BP 127/79
== END 2016-09-15 13:30 | disposition home or self-care (01) | DRG 775 ==
LOC: TRG 16:29 → LD 16:30 → OB 09-14 03:22
PROVIDERS: ADMIT Obstetrics & Gynecology; ATTEND Obstetrics & Gynecology
PROC: 10H07YZ Insertion of Other Device into Products of Conception, Via Natural or Artificial Opening (ICD-10-PCS; 2016-09-13)
PROC: 0KQM0ZZ Repair Perineum Muscle, Open Approach (ICD-10-PCS; principal; 2016-09-14)
PROC: 0W8NXZZ Division of Female Perineum, External Approach (ICD-10-PCS; principal; 2016-09-14)
PROC: 00HU33Z Insertion of Infusion Device into Spinal Canal, Percutaneous Approach (ICD-10-PCS; principal; 2016-09-14)
PROC: 10E0XZZ Delivery of Products of Conception, External Approach (ICD-10-PCS; principal; 2016-09-14)
PROC: 3E0234Z Introduction of Serum, Toxoid and Vaccine into Muscle, Percutaneous Approach (ICD-10-PCS; 2016-09-15)
PROC: 3E0R3CZ (ICD-10-PCS; 2016-09-15)
DX: O42.92 Full-term premature rupture of membranes, unspecified as to length of time between rupture and onset of labor (principal); O70.1 Second degree perineal laceration during delivery; Z37.0 Single live birth; Z91.012 Allergy to eggs; O76 Abnormality in fetal heart rate and rhythm complicating labor and delivery; O99.214 Obesity complicating childbirth; Z68.31 Body mass index [BMI] 31.0-31.9, adult; Z3A.38 38 weeks gestation of pregnancy; Z23 Encounter for immunization
CPT/HCPCS: 36415; 85014; 85018; 85027; 86592; 86850; 86900; 86901; 99211; A6250; G0463; J1050; J2210; J2405; J2590; J3010; J7120